=== PATIENT | female | born 1970 | race Caucasian/White ===

== ENCOUNTER → 2022-09-17 07:53 | Outpatient (BNVA) | payer MEDICAID, SELFPAY | PROVIDERS: PCP Nurse Practitioner Family; Referring Provider Nurse Practitioner Family; Visit Provider Specialist | DX: R20.0 Anesthesia of skin (principal); R20.2 Paresthesia of skin; R56.9 Unspecified convulsions; M62.81 Muscle weakness (generalized); Z86.2 Personal history of diseases of the blood and blood-forming organs and certain disorders involving the immune mechanism; J44.9 Chronic obstructive pulmonary disease, unspecified; Z82.49 Family history of ischemic heart disease and other diseases of the circulatory system | CPT/HCPCS: 36415; 82533; 83516; 85651; 99205 ==

== ENCOUNTER → 2023-05-14 11:56 | Outpatient (BNVA) | payer MEDICAID, SELFPAY | PROVIDERS: PCP Nurse Practitioner Family; Visit Provider Specialist | DX: R56.9 Unspecified convulsions (principal); M62.81 Muscle weakness (generalized); G43.711 Chronic migraine without aura, intractable, with status migrainosus; G90.9 Disorder of the autonomic nervous system, unspecified; J44.9 Chronic obstructive pulmonary disease, unspecified; Z87.891 Personal history of nicotine dependence | CPT/HCPCS: 99215 ==

== ENCOUNTER → 2023-07-24 10:44 | Outpatient (BNVA) | payer MEDICAID, SELFPAY | PROVIDERS: PCP Nurse Practitioner Family; Referring Provider Specialist; Visit Provider Specialist | DX: R56.9 Unspecified convulsions (principal); G43.711 Chronic migraine without aura, intractable, with status migrainosus; G90.9 Disorder of the autonomic nervous system, unspecified | CPT/HCPCS: 95816; 99214 ==